=== PATIENT | male | born 1935 | race Two or more races ===

== ENCOUNTER 2020-11-19 16:13 | Emergency (ER) | payer SELFPAY ==
[~2020-11-19] VITALS: Ht 167.6 cm; Wt 100.0 kg
[2020-11-19 16:31] VITALS: BP 123/68
== END 2020-11-19 19:39 | disposition left against medical advice (07) ==
LOC: ER 16:13
DX: R55 Syncope and collapse (principal); Z53.21 Procedure and treatment not carried out due to patient leaving prior to being seen by health care provider
CPT/HCPCS: 93005; 99283